=== PATIENT | male | born 1935 | race Caucasian/White ===

== ENCOUNTER 2017-08-11 11:57 | Emergency (ER) | payer MEDICARE, BC ==
[~2017-08-11] VITALS: Ht 177.8 cm; Wt 79.5 kg
[2017-08-11 12:01] VITALS: BP 163/83; PULSE 73; TEMP 98.7
[2017-08-11] MEDS ORDERED: ATACAND HCT 321 TAB PO (12:05)
[2017-08-11] MEDS ORDERED: SINEMET 25/101 UDTAB PO (12:05)
== END 2017-08-11 14:15 | disposition home or self-care (01) ==
LOC: COL.ER 11:57
DX: S00.83XA Contusion of other part of head, initial encounter (principal); I10 Essential (primary) hypertension; G20 Parkinson's disease; Z98.890 Other specified postprocedural states; X58.XXXA Exposure to other specified factors, initial encounter

== ENCOUNTER → 2017-08-24 | Outpatient (CLI) | payer MEDICARE, BC ==
[~2017-08-24] MED LIST: ATACAND HCT 321 TAB PO; SINEMET 25/101 UDTAB PO
== END ==
LOC: COL.RAD 07:47
DX: G20 Parkinson's disease (principal); G31.9 Degenerative disease of nervous system, unspecified; I67.82 Cerebral ischemia

== ENCOUNTER 2021-05-17 13:03 | Outpatient (RCR) | payer MEDICARE, BC | END 2021-06-10 | disposition home or self-care (01) | LOC: WSST | DX: R13.12 Dysphagia, oropharyngeal phase (principal); G20 Parkinson's disease ==

== ENCOUNTER 2021-07-05 11:15 | Outpatient (RCR) | payer MEDICARE, BC | END 2021-07-11 | disposition home or self-care (01) | LOC: WSST | DX: R13.12 Dysphagia, oropharyngeal phase (principal); G20 Parkinson's disease ==

== ENCOUNTER 2021-08-04 09:45 | Outpatient (RCR) | payer MEDICARE, BC | END 2021-08-08 | disposition home or self-care (01) | LOC: WSST | DX: R13.12 Dysphagia, oropharyngeal phase (principal) ==

== ENCOUNTER 2021-08-04 10:30 | Outpatient (RCR) | payer MEDICARE, BC | END 2021-08-08 | disposition home or self-care (01) | LOC: MKS.ESL.PT | DX: G20 Parkinson's disease (principal) ==

== ENCOUNTER → 2021-09-08 | Outpatient (RCR) | payer MEDICARE, BC | END | disposition still patient (30) | LOC: MKS.ESL.OT → MKS.ESL.PT 08-09 08:30 → MKS.ESL.OT 08-11 10:30 → MKS.ESL.PT 08-18 11:15 → MKS.ESL.OT 08-22 10:30 → MKS.ESL.PT 08-25 08:45 → MKS.ESL.OT 09-01 10:30 → MKS.ESL.PT 09-05 10:30 → MKS.ESL.OT 11:15 | DX: G20 Parkinson's disease (principal) ==

== ENCOUNTER 2021-10-06 11:15 | Outpatient (RCR) | payer MEDICARE, BC | END 2021-10-08 | disposition still patient (30) | LOC: MKS.ESL.OT | DX: G20 Parkinson's disease (principal) ==

== ENCOUNTER 2021-11-03 11:15 | Outpatient (RCR) | payer MEDICARE, BC | END 2021-11-08 | disposition home or self-care (01) | LOC: MKS.ESL.OT | DX: G20 Parkinson's disease (principal) ==

== ENCOUNTER → 2021-12-08 | Outpatient (RCR) | payer MEDICARE, BC | END | disposition home or self-care (01) | LOC: MKS.ESL.OT | DX: G20 Parkinson's disease (principal) ==

== ENCOUNTER 2022-01-05 11:15 | Outpatient (RCR) | payer MEDICARE, BC | END 2022-01-08 | disposition home or self-care (01) | LOC: MKS.ESL.OT | DX: G20 Parkinson's disease (principal) ==

== ENCOUNTER 2022-01-31 11:15 | Outpatient (RCR) | payer MEDICARE, BC | END 2022-02-08 | disposition home or self-care (01) | LOC: MKS.ESL.OT | DX: G20 Parkinson's disease (principal) ==

== ENCOUNTER 2022-10-05 11:15 | Outpatient (RCR) | payer MEDICARE, BC | END 2022-10-08 | disposition home or self-care (01) | LOC: MKS.ESL.OT | DX: G20 Parkinson's disease (principal) ==

== ENCOUNTER 2023-03-08 11:15 | Outpatient (RCR) | payer MEDICARE, BC | END 2023-03-10 | disposition home or self-care (01) | LOC: MKS.ESL.OT | DX: G20 Parkinson's disease (principal) ==

== ENCOUNTER 2023-05-24 09:24 | Outpatient (RCR) | payer MEDICARE, BC | END 2023-06-10 | disposition home or self-care (01) | LOC: MKS.ESL.PT | DX: M25.562 Pain in left knee (principal) ==

== ENCOUNTER 2023-05-24 10:15 | Outpatient (RCR) | payer MEDICARE, BC | END 2023-06-10 | disposition home or self-care (01) | LOC: MKS.ESL.OT | DX: G20.A1 Parkinson's disease without dyskinesia, without mention of fluctuations (principal) ==

== ENCOUNTER 2023-06-21 11:15 | Outpatient (RCR) | payer MEDICARE, BC | END 2023-07-11 | disposition home or self-care (01) | LOC: MKS.ESL.OT | DX: G20.A1 Parkinson's disease without dyskinesia, without mention of fluctuations (principal) ==

== ENCOUNTER 2023-06-28 14:00 | Outpatient (RCR) | payer MEDICARE, BC | END 2023-07-11 | disposition home or self-care (01) | LOC: MKS.ESL.PT | DX: M25.562 Pain in left knee (principal) ==

== ENCOUNTER → 2023-08-09 | Outpatient (RCR) | payer MEDICARE, BC | END | disposition home or self-care (01) | LOC: MKS.ESL.OT | DX: G20.A1 Parkinson's disease without dyskinesia, without mention of fluctuations (principal) ==

== ENCOUNTER → 2023-08-09 | Outpatient (RCR) | payer MEDICARE, BC | END | disposition home or self-care (01) | LOC: MKS.ESL.PT | DX: M25.562 Pain in left knee (principal) ==

== ENCOUNTER 2023-09-06 09:45 | Outpatient (RCR) | payer MEDICARE, BC | END 2023-09-09 | disposition home or self-care (01) | LOC: MKS.ESL.PT | DX: M25.562 Pain in left knee (principal) ==

== ENCOUNTER 2024-01-03 10:15 | Outpatient (RCR) | payer MEDICARE, BC | END 2024-01-09 | disposition home or self-care (01) | LOC: MKS.ESL.OT | DX: G20.A1 Parkinson's disease without dyskinesia, without mention of fluctuations (principal) ==

== ENCOUNTER 2024-04-07 11:00 | Outpatient (RCR) | payer MEDICARE, BC | END 2024-04-10 | disposition home or self-care (01) | LOC: MKS.ESL.PT | DX: R26.0 Ataxic gait (principal); M25.562 Pain in left knee; G20.A1 Parkinson's disease without dyskinesia, without mention of fluctuations ==